=== PATIENT | female | born 1940 | race Caucasian/White ===

== ENCOUNTER 2021-12-24 14:52 | Inpatient (IN) ==
[2021-12-24] MEDS ORDERED: GLUCAGON 1 MG VIAL IM PRN (17:25)
[2021-12-24] MEDS ORDERED: ACETAMINOPHEN 325 MG TABLET PO PRN (17:25)
[2021-12-24] MEDS ORDERED: ONDANSETRON 4 MG/2 ML VIAL IV PRN (17:25)
[2021-12-24] MEDS ORDERED: DEXTROSE 10% 250 ML BAG IV PRN (17:32)
[2021-12-24] MEDS: MORPHINE 2 MG/1 ML SYRINGE IV PRN (18:31)
[2021-12-24] MEDS: SODIUM CHLORIDE 0.9% 1,000 ML IV SCH (18:52)
[2021-12-24 19:14] LABS: Basophils % 0.2 % (0.0-0.8); Eosinophils % 0.1 % (0.00-10.9); Hematocrit 33.4 VOL% (35.7-47.0); Hemoglobin 11.2 GM/DL (12.0-16.0); Immature Granulocytes % 0.3 %; Immature Granulocytes Absolute 0.03 #; Lymphocytes # 0.8 10*3/uL (1.4-4.0); Lymphocytes % 8.4 % (21.3-54.2); Mean Corpuscular HGB Conc 33.5 GM/DL (32-36); Monocytes # 0.5 10*3/uL (0.11-0.8); Monocytes % 5.9 % (1.7-12.7); Neutrophils % 85.1 % (38.7-73.9); Platelet Count 289 T/CUMM (130-400); Red Blood Count 3.48 MC/CUMM (3.8-5.5); Red Cell Distribution Width 13.2 % (9.3-17.3); White Blood Count 9.2 T/CUMM (4-12)
[2021-12-24 19:24] LABS: PT Patient Result 11.4 SECS (10.1-12.1)
[2021-12-24 19:29] LABS: Urine Appearance Clear (Clear); Urine Color Yellow (Yellow)
[2021-12-24 19:31] LABS: Glucose,Urine (UA) Negative (Negative); Protein,Urine Trace mg/dL (Negative)
[2021-12-24 19:32] LABS: Bilirubin,Urine Negative (Negative); Blood, Urine Moderate mg/dL (Negative); Ketones,Urine Trace mg/dL (Negative); Nitrite,Urine Negative (Negative); Urine Urobilinogen 0.2 eU/dL (<2.0)
[2021-12-24 19:33] LABS: Albumin 3.8 G/DL (3.4-5.0); Bilirubin,Total 0.7 MG/DL (0.20-1.00); Calcium 9.2 MG/DL (8.5-10.1); Osmolality,Calculated 281.8 MOS/KG (273-304); Potassium 4.3 MMOL/L (3.5-5.1); Total Protein 7.1 G/DL (6.4-8.2)
[2021-12-24 19:33] LABS: Bacteria,Urine Occasional /HPF (Few); Hyaline Casts,Urine 1 /LPF (0-3); Mucus,Urine Occasional /LPF (Occasional); RBC,Urine 17 /HPF (0-4); Squamous Epithelial Cell,Urine Occasional /HPF (0-10)
[2021-12-24] MEDS: CARBIDOPA/LEVODOPA 25-100 MG TABLET PO SCH (21:11)
[2021-12-24] MEDS: QUEtiapine 25 MG TABLET PO SCH (21:11)
[2021-12-25 05:06] LABS: Basophils % 0.1 % (0.0-0.8); Eosinophils % 0.5 % (0.00-10.9); Hematocrit 31.1 VOL% (35.7-47.0); Hemoglobin 10.2 GM/DL (12.0-16.0); Immature Granulocytes % 0.4 %; Immature Granulocytes Absolute 0.03 #; Lymphocytes # 1.2 10*3/uL (1.4-4.0); Lymphocytes % 16.8 % (21.3-54.2); Mean Corpuscular HGB Conc 32.8 GM/DL (32-36); Mean Corpuscular Volume 98.7 FL (87-102); Mean Platelet Volume 9.1 FL (9.6-12.0); Monocytes # 0.4 10*3/uL (0.11-0.8); Monocytes % 5.6 % (1.7-12.7); Neutrophils % 76.6 % (38.7-73.9); Platelet Count 271 T/CUMM (130-400); Red Blood Count 3.15 MC/CUMM (3.8-5.5); Red Cell Distribution Width 13.5 % (9.3-17.3); White Blood Count 7.3 T/CUMM (4-12)
[2021-12-25 05:34] LABS: Albumin 3.5 G/DL (3.4-5.0); Bilirubin,Total 0.7 MG/DL (0.20-1.00); Calcium 9.1 MG/DL (8.5-10.1); Osmolality,Calculated 286.4 MOS/KG (273-304); Potassium 4.4 MMOL/L (3.5-5.1); Total Protein 6.9 G/DL (6.4-8.2)
[2021-12-25] MEDS: MORPHINE 2 MG/1 ML SYRINGE IV PRN (05:36)
[2021-12-25] MEDS ORDERED: LEVOTHYROXINE 88 MCG TABLET PO SCH (06:00)
[2021-12-25] MEDS: CHOLECALCIFEROL 1,000 UNIT TABLET PO SCH (09:48)
[2021-12-25] MEDS: PANTOPRAZOLE 40 MG TABLET PO SCH (09:48)
[2021-12-25] MEDS: LINACLOTIDE 145 MCG CAPSULE PO SCH (09:48)
[2021-12-25] MEDS: CETIRIZINE 10 MG TABLET PO SCH (09:48)
[2021-12-25] MEDS: CARBIDOPA/LEVODOPA 25-100 MG TABLET PO SCH ×4 (09:49→21:00)
[2021-12-25] MEDS: CALCIUM (CARBONATE)/VITAMIN D 600 MG-400 UNIT TABLET PO SCH (09:49)
[2021-12-25] MEDS: VENLAFAXINE XR 75 MG CAPSULE PO SCH (09:49)
[2021-12-25] MEDS: DONEPEZIL 10 MG TABLET PO SCH (09:49)
[2021-12-25] MEDS ORDERED: MAGNESIUM HYDROXIDE SUSP 30 ML UDCUP PO PRN (09:53)
[2021-12-25] MEDS ORDERED: ceFAZolin 1,000 MG VIAL ONE (09:57)
[2021-12-25] MEDS ORDERED: HYDROmorphone 1 MG/1 ML SYRINGE IV PRN ×2 (09:59→11:19)
[2021-12-25] MEDS ORDERED: propofoL 200 MG/20 ML VIAL IV ONE (10:20)
[2021-12-25] MEDS ORDERED: ROCURONIUM 50 MG/5 ML VIAL IV ONE (10:20)
[2021-12-25] MEDS ORDERED: SUCCINYLCHOLINE 200 MG/10 ML VIAL ONE (10:20)
[2021-12-25] MEDS ORDERED: LIDOCAINE 2% 5 ML VIAL ONE (10:20)
[2021-12-25] MEDS ORDERED: ONDANSETRON 4 MG/2 ML VIAL ONE (10:21)
[2021-12-25] MEDS ORDERED: SEVOFLURANE 1 UNIT/15 MINUTE INH ONE (10:21)
[2021-12-25] MEDS ORDERED: ACETAMINOPHEN INJ 1,000 MG/100 ML VIAL IV ONE (10:21)
[2021-12-25] MEDS ORDERED: GLYCOPYRROLATE 0.4 MG/2 ML VIAL ONE (10:34)
[2021-12-25] MEDS ORDERED: NEOSTIGMINE 10 MG/10 ML VIAL ONE (10:34)
[2021-12-25] MEDS ORDERED: LACTATED RINGERS 1,000 ML IV ONE (10:34)
[2021-12-25] MEDS ORDERED: MEPERIDINE 50 MG/1 ML VIAL ONE (11:19)
[2021-12-25] MEDS ORDERED: ONDANSETRON 4 MG/2 ML VIAL IV PRN (11:19)
[2021-12-25] MEDS ORDERED: MEPERIDINE 50 MG/1 ML VIAL IV PRN (11:39)
[2021-12-25] MEDS: SODIUM CHLORIDE 0.9% 1,000 ML IV SCH (15:33)
[2021-12-25] MEDS: QUEtiapine 25 MG TABLET PO SCH (21:00)
[2021-12-26] MEDS: SODIUM CHLORIDE 0.9% 1,000 ML IV SCH ×2 (03:14→23:16)
[2021-12-26 05:57] LABS: Calcium 7.9 MG/DL (8.5-10.1)
[2021-12-26 06:12] LABS: Basophils % 0.3 % (0.0-0.8); Eosinophils % 0.6 % (0.00-10.9); Hematocrit 21.7 VOL% (35.7-47.0); Immature Granulocytes % 0.5 %; Immature Granulocytes Absolute 0.03 #; Lymphocytes # 0.9 10*3/uL (1.4-4.0); Lymphocytes % 14.4 % (21.3-54.2); Mean Corpuscular HGB Conc 33.2 GM/DL (32-36); Mean Corpuscular Volume 99.1 FL (87-102); Mean Platelet Volume 9.3 FL (9.6-12.0); Monocytes # 0.5 10*3/uL (0.11-0.8); Monocytes % 7.7 % (1.7-12.7); Neutrophils % 76.5 % (38.7-73.9); Red Cell Distribution Width 13.5 % (9.3-17.3); White Blood Count 6.5 T/CUMM (4-12)
[2021-12-26 06:33] LABS: Hemoglobin 7.2 GM/DL (12.0-16.0); Platelet Count 185 T/CUMM (130-400); Red Blood Count 2.19 MC/CUMM (3.8-5.5)
[2021-12-26] MEDS ORDERED: SODIUM CHLORIDE 0.9% 1,000 ML IV PRN (07:18)
[2021-12-26] MEDS: LEVOTHYROXINE 88 MCG TABLET PO SCH (08:00)
[2021-12-26] MEDS: VENLAFAXINE XR 75 MG CAPSULE PO SCH (08:39)
[2021-12-26] MEDS: CETIRIZINE 10 MG TABLET PO SCH (08:39)
[2021-12-26] MEDS: ASPIRIN 325 MG TABLET PO SCH (08:39)
[2021-12-26] MEDS: DONEPEZIL 10 MG TABLET PO SCH (08:39)
[2021-12-26] MEDS: CHOLECALCIFEROL 1,000 UNIT TABLET PO SCH (08:39)
[2021-12-26] MEDS: CARBIDOPA/LEVODOPA 25-100 MG TABLET PO SCH ×4 (08:39→21:05)
[2021-12-26] MEDS: LINACLOTIDE 145 MCG CAPSULE PO SCH (08:40)
[2021-12-26] MEDS: PANTOPRAZOLE 40 MG TABLET PO SCH (08:40)
[2021-12-26] MEDS: CALCIUM (CARBONATE)/VITAMIN D 600 MG-400 UNIT TABLET PO SCH (08:40)
[2021-12-26] MEDS: MORPHINE 2 MG/1 ML SYRINGE IV PRN ×2 (08:41→12:36)
[2021-12-26 18:06] LABS: Hemoglobin 8.5 GM/DL (12.0-16.0)
[2021-12-26] MEDS: QUEtiapine 25 MG TABLET PO SCH (21:04)
[2021-12-26] MEDS: DOCUSATE SODIUM 100 MG CAPSULE PO SCH (21:04)
[2021-12-27] MEDS: LEVOTHYROXINE 88 MCG TABLET PO SCH (05:56)
[2021-12-27 06:09] LABS: Basophils % 0.1 % (0.0-0.8); Eosinophils % 0.4 % (0.00-10.9); Hematocrit 26.8 VOL% (35.7-47.0); Hemoglobin 8.6 GM/DL (12.0-16.0); Immature Granulocytes % 0.4 %; Immature Granulocytes Absolute 0.03 #; Lymphocytes # 0.9 10*3/uL (1.4-4.0); Lymphocytes % 13.9 % (21.3-54.2); Mean Corpuscular HGB Conc 32.1 GM/DL (32-36); Mean Corpuscular Volume 96.8 FL (87-102); Mean Platelet Volume 9.5 FL (9.6-12.0); Monocytes # 0.4 10*3/uL (0.11-0.8); Monocytes % 5.9 % (1.7-12.7); Neutrophils % 79.3 % (38.7-73.9); Platelet Count 193 T/CUMM (130-400); Red Blood Count 2.77 MC/CUMM (3.8-5.5); Red Cell Distribution Width 15.2 % (9.3-17.3); White Blood Count 6.8 T/CUMM (4-12)
[2021-12-27 06:37] LABS: Calcium 8.1 MG/DL (8.5-10.1); Potassium 3.6 MMOL/L (3.5-5.1)
[2021-12-27] MEDS ORDERED: MAGNESIUM SULF RIDER 2 GM/50 ML PREMIX IV ONE (08:00)
[2021-12-27] MEDS: DOCUSATE SODIUM 100 MG CAPSULE PO SCH (08:59)
[2021-12-27] MEDS: CALCIUM (CARBONATE)/VITAMIN D 600 MG-400 UNIT TABLET PO SCH (08:59)
[2021-12-27] MEDS: VENLAFAXINE XR 75 MG CAPSULE PO SCH (08:59)
[2021-12-27] MEDS: CHOLECALCIFEROL 1,000 UNIT TABLET PO SCH (08:59)
[2021-12-27] MEDS: ASPIRIN 325 MG TABLET PO SCH (08:59)
[2021-12-27] MEDS: DONEPEZIL 10 MG TABLET PO SCH (08:59)
[2021-12-27] MEDS: PANTOPRAZOLE 40 MG TABLET PO SCH (09:00)
[2021-12-27] MEDS: LINACLOTIDE 145 MCG CAPSULE PO SCH (09:00)
[2021-12-27] MEDS: CETIRIZINE 10 MG TABLET PO SCH (09:00)
[2021-12-27] MEDS: CARBIDOPA/LEVODOPA 25-100 MG TABLET PO SCH ×2 (09:02→13:29)
[2021-12-27] MEDS: oxyCODONE/ACETAMINOPHEN 5-325 MG TABLET PO PRN ×2 (09:19→13:30)
[2021-12-27 12:04] VITALS: BP 98/52
== END 2021-12-27 14:38 | disposition swing bed (61) | DRG 481 ==
LOC: SUATTDRO 16:34 → N.3E 16:34
PROVIDERS: ADMIT Internal Medicine; ATTEND Emergency Medicine